=== PATIENT | female | born 1970 | race Caucasian/White ===

== ENCOUNTER 2017-06-13 13:50 | Emergency (ER) | payer BC ==
[~2017-06-13] VITALS: Ht 157.5 cm; Wt 103.0 kg
[~2017-06-13 13:50] MED LIST: LISI-360 PO; ONDA1TAB16 PO; TRAM50 PO
[2017-06-13 13:55] VITALS: BP 143/91; PULSE 96; RESP 16; TEMP 98.5; O2SAT 97
[2017-06-13 16:00] VITALS: BP 121/59; PULSE 72; RESP 18; O2SAT 98
[2017-06-13] MEDS ORDERED: diphenhydrAMINE HCL 50 MG/ML VIAL IV PUSH ONE (16:00)
[2017-06-13] MEDS ORDERED: PROCHLORPERAZINE INJ 10 MG/2 ML VIAL IV PUSH ONE (16:00)
--- NOTE | 2017-06-13 16:28 | PD ---
HPI . Headache and chest pain Chief Complaint: Chest Pain Time Seen by Provider: 15:35 Travel History International Travel<30 days: No Contact w/Intl Traveler<30days: No Traveled to known affect area: No History of Present Illness HPI This woman presents with a chief complaint of headache that started at about 8 this morning followed by chest pain that started about 2 hours prior to presentation. She describes a throbbing pain in her left spiritism which she rates 8/10. It is associated with nausea. There have been no relieving factors. She has not taken anything for prior to presentation. [facility] Past Medical History Hx Anticoagulant Therapy: No Cardiovascular Problems: Yes (HTN) Diabetes: No Hypertension: Yes Respiratory: No ?: Not Past Surgical History Cholecystectomy: Yes Hysterectomy: Yes Other Surgery: Yes (breast biopsy) Social History Alcohol Use: No Tobacco Use: No Substance Use: No Allergies-Medications (Allergen,Severity, Reaction): Coded Allergies: meperidine (Unverified Allergy, Intermediate, Hives, 10/28/16) Reported Meds & Prescriptions Reported Meds & Active Scripts Active Zofran Tab (Ondansetron HCl) 4 Mg Tab 4 Mg PO Q6 PRN Ultram (Tramadol HCl) 50 Mg Tab 50 Mg PO Q6 PRN Reported Lisinopril 10 mg (Lisinopril) 10 Mg Tab 1 Tab PO DAILY Review of Systems Except as stated in HPI: all other systems reviewed are Neg HENT: Positive: Headaches Cardiovascular: Positive: Chest Pain or Discomfort Physical Exam Narrative GENERAL: Awake and alert. SKIN: warm/dry. HEAD: Normocephalic. Positive scalp tenderness. EYES: Pupils equal and round. No scleral icterus. No injection or drainage. ENT: No nasal bleeding or discharge. Mucous membranes pink and moist. NECK: Trachea midline. Full range of motion without pain.. CARDIOVASCULAR: Regular rate and rhythm. Heart sounds are normal. RESPIRATORY: No accessory muscle use. Clear to auscultation. Breath sounds equal bilaterally. MUSCULOSKELETAL: No obvious deformities. NEUROLOGICAL: Awake and alert. No obvious cranial nerve deficits. Motor grossly within normal limits. Normal speech. PSYCHIATRIC: Appropriate mood and affect; insight and judgment normal. Data Data Last Documented VS Vital Signs Date Time Temp Pulse Resp B/P (MAP) Pulse Ox O2 Delivery O2 Flow Rate FiO2 06/13/17 16:00 72 18 121/59 (79) 98 Room Air 06/13/17 13:55 98.5 Orders Orders Electrocardiogram (06/13/17 ) Diphenhydramine Inj (Benadryl Inj) (06/13/17 16:00) Prochlorperazine Inj (Compazine Inj) (06/13/17 16:00) ^ Saline Lock (06/13/17 15:51) MDM Medical Decision Making Medical Screen Exam Complete: Yes Emergency Medical Condition: Yes Interpretation(s) EKG shows a normal sinus rhythm. This is actually a normal. Differential Diagnosis Differential diagnosis of headache includes but is not limited to migraine, muscle contraction headache, brain tumor, brain bleed Differential diagnosis of chest pain includes but is not limited to musculoskeletal pain, pulmonary embolism, acute coronary syndrome, pneumonia, pleurisy Narrative Course This patient presents with headache which was followed by chest pain. The likelihood of her having both a neurological and cardiovascular event at the same time is pretty slim. I suspect an element of stress or anxiety. Her EKG is normal. I am treating her with IV Compazine and Benadryl. The patient reports that her head pain is improved with Compazine and Benadryl. She does not have any concerning physical exam findings. I will discharge her to home. Diagnosis Primary Impression: Headache Qualified Codes: G44.209 - Tension-type headache, unspecified, not intractable Additional Impression: Chest pain Qualified Codes: R07.9 - Chest pain, unspecified Patient Instructions: Acute Headache (DC), Chest Pain (DC), General Instructions Disposition: 01 DISCHARGE HOME Condition: Stable Fany Estrada MD Jun 13, 2017 16:28
[2017-06-13 18:22] VITALS: BP 124/72
--- NOTE | 2017-06-14 12:17 | EKG ---
Date Performed: 06/13/2017 Time Performed: 14:00:36 PTAGE: 46 years EKG: Sinus rhythm NORMAL ECG NO PREVIOUS TRACING DOCTOR: Matthew Peres Interpretating Date/Time 06/14/2017 12:14:41
== END 2017-06-13 18:24 | disposition home or self-care (01) ==
LOC: NEPC 13:50
DX: G44.209 Tension-type headache, unspecified, not intractable (principal); R07.9 Chest pain, unspecified; I10 Essential (primary) hypertension
CPT/HCPCS: 93005; 96374; 96375; 99284; J0780; J1200